=== PATIENT | male | born 1995 | race Caucasian/White ===

== ENCOUNTER 2025-01-31 15:58 | Outpatient (REF) | payer SELFPAY ==
[2025-02-04 09:05] LABS: Lyme Ab w Rflx to Lyme Confirm Negative (Negative)
== END 2025-01-31 15:59 | disposition home or self-care (01) ==
LOC: LBN 15:58
PROVIDERS: PCP Internal Medicine; Visit Provider Physician Assistant Medical
DX: T14.90XA Injury, unspecified, initial encounter (principal); W57.XXXA Bitten or stung by nonvenomous insect and other nonvenomous arthropods, initial encounter
CPT/HCPCS: 86618